=== PATIENT | female | born 1955 | race Hispanic/Latino ===

== ENCOUNTER → 2024-08-21 | Outpatient (CLI) | payer OTHER, MEDICARE ==
[~2024-08-21] MED LIST: AEC81 PO; CETI10TA57 PO; CHOL500062 PO; CYAN-106 PO; ESCI-8 PO; FLUT16H NASAL; GABA300C PO; IOHEXOL 350 MG/ML 100ML INFUS..BTL IV ONE; LISI1TAB53 PO; METF-444 PO; OMEP20CA12 PO; SIMV-43 PO; TRAM50TA4 PO; metoPROLOL tartRATE 1 MG/ML 5ML VIAL IV ONE
--- NOTE | 2024-08-21 15:10 | HMCIMG ---
CT CARDIAC ANGIO W/CONT. CCTA HISTORY: Chest pain COMPARISON: None TECHNIQUE: Multiple sequential axial images of the chest were obtained along with the CT angiogram of the chest study. Patient was given 100 cc of Omnipaque through intravenous route. FINDINGS: There is no evidence of pulmonary nodule or parenchymal disease. No pleural effusion or pericardial effusion is seen. There is no evidence of pneumothorax. There are normal size mediastinal and hilar lymph nodes. The heart is not enlarged. Degenerative changes of the thoracolumbar spine are present. IMPRESSION: 1. No evidence of pulmonary nodule or effusion is seen. Please see CT angiogram report of coronary arteries.
== END | disposition home or self-care (01) ==
LOC: RAH 13:23
PROVIDERS: ATTEND Internal Medicine Cardiovascular Disease
DX: R06.02 Shortness of breath (principal); R07.9 Chest pain, unspecified; M47.815 Spondylosis without myelopathy or radiculopathy, thoracolumbar region
CPT/HCPCS: 75574; J3490; Q9967